=== PATIENT | male | born 1960 | race American Indian/Alaskan Native ===

== ENCOUNTER 2017-06-14 14:41 | Outpatient (CLI) | payer OTHER ==
--- NOTE | 2017-06-14 15:02 | XRay Report ---
RIGHT SHOULDER RADIOGRAPHS INDICATION: Right shoulder pain. COMPARISON: None similar at this institution. FINDINGS: Frontal and Y views of the right shoulder, 3 projections demonstrate normal humeral head contour, well positioned against the glenoid. Intact acromioclavicular joint with slight degenerative changes. Preserved scapular contour. Normal visualized soft tissues, right ribs and lung. CONCLUSION: No acute right shoulder radiographic abnormality with mild AC joint degenerative changes. Please correlate. Thank you for the opportunity to participate in this patient's care.
== END 2017-06-14 14:42 | disposition home or self-care (01) ==
LOC: SPVIMAG 14:41
DX: M19.011 Primary osteoarthritis, right shoulder (principal)